=== PATIENT | female | born 1955 | race Caucasian/White ===

== ENCOUNTER 2017-10-11 12:55 | Emergency (ER) | payer OTHER ==
[2017-10-11 13:28] VITALS: BP 133/68
--- NOTE | 2017-10-11 13:58 | UC ---
UC General HPI - HPI Summary HPI Summary: Patient c/o loose stools for the past 6 days. A week ago she came back from travels in [facility] and [facility] and she believes the diarrhea was due to some iced tea she drank there. She denies fever, nausea, vomiting. Her stools are brown without presence of blood or mucus. She has been hydrating intensely and eating a bland diet and probiotics. - History of Current Complaint Chief Complaint: UCGI Stated Complaint: DIARRHEA Time Seen by Provider: 10/11/17 13:34 Hx Obtained From: Patient Onset/Duration: Sudden Onset, Lasting Days Onset Severity: Mild Current Severity: Mild Pain Intensity: 2 Associated Signs & Symptoms: Positive: Diarrhea - Allergy/Home Medications Allergies/Adverse Reactions: Allergies Allergy/AdvReac Type Severity Reaction Status Date / Time No Known Allergies Allergy Verified 10/11/17 13:28 PMH/Surg Hx/FS Hx/Imm Hx Previously Healthy: Yes Psychological History: Depression - Surgical History Surgical History: None - Social History Alcohol Use: Occasionally Substance Use Type: None Smoking Status (MU): Never Smoked Tobacco Review of Systems Constitutional: Negative Gastrointestinal: Diarrhea All Other Systems Reviewed And Are Negative: Yes Physical Exam Triage Information Reviewed: Yes Appearance: Well-Appearing, No Pain Distress, Well-Nourished Vital Signs: Initial Vital Signs Temp 98.1 F 10/11/17 13:22 Pulse 81 10/11/17 13:22 Resp 18 10/11/17 13:22 BP 133/68 10/11/17 13:22 Pulse Ox 99 10/11/17 13:22 Eye Exam: Normal Eyes: Positive: Conjunctiva Clear ENT: Positive: Pharynx normal, Uvula midline Neck: Positive: Supple, Nontender, No Lymphadenopathy Respiratory: Positive: Chest non-tender, Lungs clear, Normal breath sounds, No respiratory distress Cardiovascular: Positive: RRR, No Murmur, Pulses Normal, Brisk Capillary Refill Abdomen Description: Positive: Nontender, No Organomegaly, Soft Bowel Sounds: Positive: Present Course/Dx - Course Course Of Treatment: Physical exam shows benign abdomen, continue BRAT diet and progress to foods as tolerated, continue probiotics, oral hydration. F/u PCP or return if symptoms worsen or do not resolve in 4 days - Differential Dx - Multi-Symptom Provider Diagnoses: acute gastroenteritis Discharge - Discharge Plan Condition: Stable Disposition: HOME Patient Education Materials: Gastroenteritis (ED) Referrals: Yanni Ferraro MD [Primary Care Provider] -
== END 2017-10-11 13:53 | disposition home or self-care (01) ==
LOC: UCEAST 12:55
DX: K52.9 Noninfective gastroenteritis and colitis, unspecified (principal); F32.9 Major depressive disorder, single episode, unspecified
CPT/HCPCS: 99201; G0463